=== PATIENT | female | born 2000 | race Caucasian/White ===

== ENCOUNTER 2019-07-18 11:08 | Emergency (ER) | payer MEDICAID ==
[~2019-07-18] VITALS: Ht 162.6 cm; Wt 83.7 kg
[~2019-07-18 11:08] MED LIST: ALBU18HF2 IH; DICY10CA59 PO; ETON68IM3 SQ; IBUP-1985 PO
[2019-07-18] MEDS ORDERED: ONDA8TAB6 PO (11:45)
[2019-07-18] MEDS ORDERED: DIPH25CA54 PO (11:45)
[2019-07-18] MEDS ORDERED: diphenhydrAMINE 25mg capsule PO ONE (11:45)
[2019-07-18] MEDS ORDERED: ondansetron 4mg rapidly disintigrating tab PO ONE (11:45)
[2019-07-18 12:16] VITALS: BP 116/83
[2019-07-18 12:32] LABS: GLUCOSE, URINE NEGATIVE (Neg); KETONES,URINE NEGATIVE (Neg); LEUKOCYTE ESTERASE ,URINE NEGATIVE (Neg); NITRITES, URINE NEGATIVE (Neg); OCCULT BLOOD,URINE LARGE (Neg); PROTEIN,URINE 100 mg/dl (Neg)
[2019-07-18 12:33] LABS: URINE HCG NEGATIVE (NEG)
[2019-07-18 12:48] LABS: COLOR,URINE DARK YELLOW (Yellow); UA COLLECTION TYPE CLN CATCH MIDSTREAM
[2019-07-18 12:49] LABS: BACTERIA,URINE FEW /HPF (Neg); CLARITY,URINE SLIGHTLY CLOUDY (Clear); MUCUS STRANDS FEW /LPF (Neg); RBC,URINE 50-100 /HPF (0-2); SQUAMOUS EPITHELIAL CELL,UR FEW /LPF (FEW)
== END 2019-07-18 12:18 | disposition home or self-care (01) ==
LOC: ER 11:09
DX: R21 Rash and other nonspecific skin eruption (principal); L29.9 Pruritus, unspecified; R10.30 Lower abdominal pain, unspecified; R11.0 Nausea; J45.909 Unspecified asthma, uncomplicated; F31.9 Bipolar disorder, unspecified; Z98.86 Personal history of breast implant removal; Z98.890 Other specified postprocedural states; Z88.0 Allergy status to penicillin; Z79.899 Other long term (current) drug therapy
CPT/HCPCS: 81001; 81025; 87088; 99283; Q0163

== ENCOUNTER 2019-08-09 15:20 | Emergency (ER) | payer MEDICAID ==
[~2019-08-09] VITALS: Ht 162.6 cm; Wt 80.4 kg
[~2019-08-09 15:20] MED LIST changes: +DIPH25CA54 PO; +ONDA8TAB6 PO
[2019-08-09 15:59] LABS: BASOPHILS # (AUTO) 0.1 X10'3 (0-0.2); BASOPHILS % (AUTO) 1.1 % (0-1); EOSINOPHILS # (AUTO) 1.9 X10'3 (0-0.9); EOSINOPHILS % (AUTO) 16.1 % (0-6); HEMATOCRIT 42.5 % (35.0-45.0); HEMOGLOBIN 14.5 g/dl (12.0-16.0); LYMPHOCYTES # (AUTO) 2.6 X10'3 (1.1-4.8); LYMPHOCYTES % (AUTO) 22.1 % (21-51); MEAN CORPUSCULAR HEMOGLOBIN 31.3 PG (27.0-31.0); MEAN CORPUSCULAR HGB CONC 34.1 g/dL (33.0-36.5); MEAN CORPUSCULAR VOLUME 91.9 FL (78-98); MEAN PLATELET VOLUME 8.3 FL (7.4-10.4); MONOCYTES # (AUTO) 0.7 X10'3 (0-0.9); MONOCYTES % (AUTO) 5.8 % (2-12); NEUTROPHILS # (AUTO) 6.5 X10'3 (1.8-7.7); NEUTROPHILS % (AUTO) 54.9 % (42-75); PLATELET COUNT 305 X10'3 (140-440); RED BLOOD COUNT 4.62 X10'6 (4.20-5.60); RED CELL DISTRIBUTION WIDTH 12.9 % (11.5-14.5); WHITE BLOOD COUNT 11.8 X10'3 (4.5-11.0)
[2019-08-09 16:13] LABS: ALANINE AMINOTRANSFERASE 28 U/L (12-78); ALBUMIN 3.1 G/DL (3.4-5.0); ALKALINE PHOSPHATASE 65 IU/L (20-180); ANION GAP 9 (8-16); ASPARTATE AMINO TRANSFERASE 16 U/L (10-37); BILIRUBIN,TOTAL 0.1 MG/DL (0.1-1.0); BLOOD UREA NITROGEN 8 MG/DL (7-18); BUN/CREATININE RATIO 10.4 (6.6-38.0); CALCIUM 8.4 MG/DL (8.5-10.1); CHLORIDE 109 MMOL/L (99-107); CREATININE 0.77 MG/DL (0.40-0.90); GLUCOSE 109 MG/DL (70-104); LIPASE 141 U/L (73-393); POTASSIUM 3.7 MMOL/L (3.5-5.1); SODIUM 143 MMOL/L (135-145); TOTAL CARBON DIOXIDE 24.8 MMOL/L (24-32); TOTAL PROTEIN 6.1 G/DL (6.4-8.2); eGFR > 90 ML/MIN
[2019-08-09 19:10] LABS: CLARITY,URINE CLEAR (Clear); COLOR,URINE YELLOW (Yellow); GLUCOSE, URINE NEGATIVE (Neg); KETONES,URINE NEGATIVE (Neg); LEUKOCYTE ESTERASE ,URINE NEGATIVE (Neg); NITRITES, URINE NEGATIVE (Neg); OCCULT BLOOD,URINE MODERATE (Neg); PROTEIN,URINE 30 mg/dl (Neg); UROBILINOGEN,URINE 0.2 E.U/dL (0.2-1.0)
[2019-08-09] MEDS ORDERED: PROC25SU31 RC (19:10)
[2019-08-09] MEDS ORDERED: PANT-47 PO (19:10)
[2019-08-09] MEDS ORDERED: pantoprazole 40 MG vial IV ONE (19:10)
[2019-08-09] MEDS ORDERED: normal saline 1000ML IV soln IVB ONE ×2 (19:10)
[2019-08-09] MEDS ORDERED: proCHLORperazine 10 MG/2 ml inj IV ONE (19:10)
[2019-08-09 19:15] LABS: URINE HCG NEGATIVE (NEG)
[2019-08-09 19:21] LABS: UA COLLECTION TYPE CLN CATCH MIDSTREAM
[2019-08-09 19:23] LABS: RBC,URINE 20-50 /HPF (0-2); WBC,URINE 0-4 /HPF (0-4)
[2019-08-09 19:24] LABS: BACTERIA,URINE NONE SEEN /HPF (Neg); MUCUS STRANDS MODERATE /LPF (Neg); SQUAMOUS EPITHELIAL CELL,UR FEW /LPF (FEW)
[2019-08-09 19:25] LABS: HYALINE CASTS 0-3 /LPF (NEGATIVE)
[2019-08-09] MEDS ORDERED: LIDOcaine Viscous 15ml cup TP ONE (19:30)
[2019-08-09] MEDS ORDERED: mag hydrox/Alum hydrox/simeth 30ml oral suspension PO ONE (19:30)
[2019-08-09 20:03] VITALS: BP 110/77
== END 2019-08-09 20:02 | disposition home or self-care (01) ==
LOC: ER 15:21
DX: K29.00 Acute gastritis without bleeding (principal); R10.13 Epigastric pain; R10.12 Left upper quadrant pain; R11.2 Nausea with vomiting, unspecified; J45.909 Unspecified asthma, uncomplicated; F12.90 Cannabis use, unspecified, uncomplicated; F17.200 Nicotine dependence, unspecified, uncomplicated; Z90.89 Acquired absence of other organs; Z88.0 Allergy status to penicillin; Z79.899 Other long term (current) drug therapy
CPT/HCPCS: 36415; 80053; 81001; 81025; 83690; 85025; 96374; 96375; 99284; C9113; J0780; J7030

== ENCOUNTER 2019-12-01 04:25 | Emergency (ER) | payer MEDICAID ==
[~2019-12-01] VITALS: Ht 162.6 cm; Wt 83.8 kg
[~2019-12-01 04:25] MED LIST changes: +PANT-47 PO
[2019-12-01 04:53] LABS: CLARITY,URINE SLIGHTLY CLOUDY (Clear); COLOR,URINE YELLOW (Yellow); GLUCOSE, URINE NEGATIVE (Neg); KETONES,URINE NEGATIVE (Neg); LEUKOCYTE ESTERASE ,URINE NEGATIVE (Neg); NITRITES, URINE NEGATIVE (Neg); OCCULT BLOOD,URINE LARGE (Neg); PROTEIN,URINE 100 mg/dl (Neg); URINE HCG NEGATIVE (NEG)
[2019-12-01 04:57] LABS: BASOPHILS # (AUTO) 0.1 X10'3 (0-0.2); BASOPHILS % (AUTO) 0.7 % (0-1); EOSINOPHILS # (AUTO) 1.9 X10'3 (0-0.9); EOSINOPHILS % (AUTO) 17.7 % (0-6); HEMATOCRIT 40.6 % (35.0-45.0); HEMOGLOBIN 13.8 g/dl (12.0-16.0); LYMPHOCYTES # (AUTO) 3.3 X10'3 (1.1-4.8); LYMPHOCYTES % (AUTO) 30.9 % (21-51); MEAN CORPUSCULAR HEMOGLOBIN 32.1 PG (27.0-31.0); MEAN CORPUSCULAR VOLUME 94.4 FL (78-98); MEAN PLATELET VOLUME 8.5 FL (7.4-10.4); MONOCYTES # (AUTO) 0.8 X10'3 (0-0.9); MONOCYTES % (AUTO) 7.4 % (2-12); NEUTROPHILS # (AUTO) 4.6 X10'3 (1.8-7.7); NEUTROPHILS % (AUTO) 43.3 % (42-75); PLATELET COUNT 293 X10'3 (140-440); RED CELL DISTRIBUTION WIDTH 13.2 % (11.5-14.5); WHITE BLOOD COUNT 10.6 X10'3 (4.5-11.0)
[2019-12-01 04:58] LABS: UA COLLECTION TYPE CLN CATCH MIDSTREAM
[2019-12-01 04:59] LABS: BACTERIA,URINE FEW /HPF (Neg); RBC,URINE 50-100 /HPF (0-2); SQUAMOUS EPITHELIAL CELL,UR MODERATE /LPF (FEW); WBC,URINE 0-4 /HPF (0-4)
[2019-12-01 05:12] LABS: ALANINE AMINOTRANSFERASE 30 U/L (12-78); ALBUMIN 3.3 G/DL (3.4-5.0); ALKALINE PHOSPHATASE 69 IU/L (20-180); ANION GAP 10 (8-16); ASPARTATE AMINO TRANSFERASE 20 U/L (10-37); BILIRUBIN,TOTAL 0.3 MG/DL (0.1-1.0); BLOOD UREA NITROGEN 10 MG/DL (7-18); BUN/CREATININE RATIO 12.8 (6.6-38.0); CALCIUM 8.7 MG/DL (8.5-10.1); CHLORIDE 106 MMOL/L (99-107); CREATININE 0.78 MG/DL (0.40-0.90); GLUCOSE 96 MG/DL (70-104); LIPASE 128 U/L (73-393); SODIUM 141 MMOL/L (135-145); TOTAL CARBON DIOXIDE 25.2 MMOL/L (24-32); TOTAL PROTEIN 6.5 G/DL (6.4-8.2); eGFR > 90 ML/MIN
[2019-12-01 05:39] VITALS: BP 117/71
== END 2019-12-01 05:41 | disposition home or self-care (01) ==
LOC: ER 04:26
DX: R10.11 Right upper quadrant pain (principal); J45.909 Unspecified asthma, uncomplicated; F12.90 Cannabis use, unspecified, uncomplicated; F31.9 Bipolar disorder, unspecified; N94.6 Dysmenorrhea, unspecified; N92.5 Other specified irregular menstruation; Z88.0 Allergy status to penicillin; Z87.440 Personal history of urinary (tract) infections; Z86.69 Personal history of other diseases of the nervous system and sense organs; Z90.89 Acquired absence of other organs; Z79.899 Other long term (current) drug therapy
CPT/HCPCS: 36415; 80053; 81001; 81025; 83690; 85025; 99283

== ENCOUNTER 2019-12-08 19:24 | Emergency (ER) | payer MEDICAID ==
[~2019-12-08] VITALS: Ht 162.6 cm; Wt 84.8 kg
[2019-12-08 19:27] VITALS: BP 117/59
[2019-12-08] MEDS ORDERED: NAPR-996 PO (19:49)
[2019-12-08] MEDS ORDERED: ibuprofen tablet 400 MG TABLET PO ONE (19:50)
[2019-12-08] MEDS ORDERED: HYDROcodone/acetaminophen 5mg/325mg tablet PO ONE (19:50)
== END 2019-12-08 20:08 | disposition home or self-care (01) ==
LOC: ER 19:25
DX: K08.89 Other specified disorders of teeth and supporting structures (principal); F31.9 Bipolar disorder, unspecified; F12.90 Cannabis use, unspecified, uncomplicated; Z86.69 Personal history of other diseases of the nervous system and sense organs; Z90.89 Acquired absence of other organs; Z88.0 Allergy status to penicillin; Z79.899 Other long term (current) drug therapy
CPT/HCPCS: 99283

== ENCOUNTER 2020-01-03 06:38 | Emergency (ER) | payer MEDICAID ==
[~2020-01-03] VITALS: Ht 162.6 cm; Wt 77.3 kg
[~2020-01-03 06:38] MED LIST changes: +NAPR-996 PO
[2020-01-03 06:42] VITALS: BP 130/81
== END 2020-01-03 07:52 | disposition home or self-care (01) ==
LOC: ER 06:39
DX: J45.909 Unspecified asthma, uncomplicated (principal); Z11.59 Encounter for screening for other viral diseases; F31.9 Bipolar disorder, unspecified; F17.200 Nicotine dependence, unspecified, uncomplicated; F12.90 Cannabis use, unspecified, uncomplicated; M54.2 Cervicalgia; Z86.69 Personal history of other diseases of the nervous system and sense organs; Z88.0 Allergy status to penicillin; Z79.899 Other long term (current) drug therapy
CPT/HCPCS: 36415; 71045; 99284; U0003

== ENCOUNTER 2020-09-18 20:47 | Emergency (ER) | payer MEDICAID ==
[~2020-09-18] VITALS: Ht 160 cm; Wt 84.2 kg
[2020-09-18 21:33] LABS: BASOPHILS # (AUTO) 0.1 X10'3 (0-0.2); BASOPHILS % (AUTO) 1.2 % (0-1); EOSINOPHILS % (AUTO) 21.8 % (0-6); HEMATOCRIT 40.5 % (35.0-45.0); HEMOGLOBIN 13.9 g/dl (12.0-16.0); LYMPHOCYTES # (AUTO) 2.3 X10'3 (1.1-4.8); LYMPHOCYTES % (AUTO) 25.5 % (21-51); MEAN CORPUSCULAR HEMOGLOBIN 31.7 PG (27.0-31.0); MEAN CORPUSCULAR HGB CONC 34.3 g/dL (33.0-36.5); MEAN CORPUSCULAR VOLUME 92.5 FL (78-98); MEAN PLATELET VOLUME 8.8 FL (7.4-10.4); MONOCYTES # (AUTO) 0.5 X10'3 (0-0.9); MONOCYTES % (AUTO) 5.2 % (2-12); NEUTROPHILS # (AUTO) 4.2 X10'3 (1.8-7.7); NEUTROPHILS % (AUTO) 46.3 % (42-75); PLATELET COUNT 317 X10'3 (140-440); RED BLOOD COUNT 4.38 X10'6 (4.20-5.60); RED CELL DISTRIBUTION WIDTH 12.8 % (11.5-14.5)
[2020-09-18 21:43] LABS: ALANINE AMINOTRANSFERASE 24 U/L (12-78); ALBUMIN 3.3 G/DL (3.4-5.0); ALKALINE PHOSPHATASE 65 IU/L (46-116); ANION GAP 12 (8-16); ASPARTATE AMINO TRANSFERASE 17 U/L (10-37); BILIRUBIN,TOTAL 0.1 MG/DL (0.1-1.0); BLOOD UREA NITROGEN 12 MG/DL (7-18); CALCIUM 9.1 MG/DL (8.5-10.1); CHLORIDE 104 MMOL/L (99-107); CREATININE 0.75 MG/DL (0.40-0.90); GLUCOSE 142 MG/DL (70-104); POTASSIUM 3.7 MMOL/L (3.5-5.1); SODIUM 142 MMOL/L (135-145); TOTAL CARBON DIOXIDE 26.2 MMOL/L (24-32); TOTAL PROTEIN 6.7 G/DL (6.4-8.2); eGFR > 90 ML/MIN
[2020-09-18 22:37] LABS: PLATELET ESTIMATE NORMAL; TOTAL CELLS COUNTED 100
[2020-09-18 23:23] LABS: URINE HCG NEGATIVE (NEG)
[2020-09-18] MEDS ORDERED: metroNIDAZOLE 500mg tablet PO ONE (23:25)
[2020-09-18] MEDS ORDERED: CEFTRIAXONE 500 MG VIAL IM ONE (23:25)
[2020-09-18] MEDS ORDERED: DOXY100C43 PO (23:27)
[2020-09-18] MEDS ORDERED: FLUC150T66 PO (23:27)
[2020-09-18] MEDS ORDERED: METR-159 PO (23:27)
[2020-09-18] MEDS ORDERED: fluconazole 150mg tablet PO ONE (23:30)
[2020-09-18 23:38] LABS: CLARITY,URINE CLOUDY (Clear); COLOR,URINE YELLOW (Yellow); GLUCOSE, URINE NEGATIVE (Neg); KETONES,URINE NEGATIVE (Neg); LEUKOCYTE ESTERASE ,URINE SMALL (Neg); NITRITES, URINE NEGATIVE (Neg); OCCULT BLOOD,URINE LARGE (Neg); PH,URINE 7.5 (4.8-8.0); PROTEIN,URINE 100 mg/dl (Neg)
[2020-09-18 23:49] LABS: UA COLLECTION TYPE CLN CATCH MIDSTREAM
[2020-09-18 23:50] LABS: BACTERIA,URINE 4+ /HPF (Neg); WBC,URINE 50-100 /HPF (0-4)
[2020-09-18 23:51] LABS: SQUAMOUS EPITHELIAL CELL,UR MANY /LPF (FEW); WBC CLUMPS,URINE FEW /HPF (NEGATIVE)
[2020-09-18] MEDS ORDERED: CefTRIAXone 1000mg IM Kit (w/lidocaine diluent) IM ONE (23:55)
[2020-09-18 23:56] VITALS: BP 120/68
== END 2020-09-18 23:50 | disposition home or self-care (01) ==
LOC: ER 20:47
DX: N72 Inflammatory disease of cervix uteri (principal); R42 Dizziness and giddiness; G40.909 Epilepsy, unspecified, not intractable, without status epilepticus; J45.909 Unspecified asthma, uncomplicated; F12.90 Cannabis use, unspecified, uncomplicated; Z87.440 Personal history of urinary (tract) infections; Z90.49 Acquired absence of other specified parts of digestive tract; Z88.0 Allergy status to penicillin; Z91.030 Bee allergy status; Z79.2 Long term (current) use of antibiotics; Z79.899 Other long term (current) drug therapy
CPT/HCPCS: 36415; 80053; 81001; 81025; 85007; 85025; 96372; 99283; J0696; J3490

== ENCOUNTER 2020-12-03 19:31 | Emergency (ER) | payer MEDICAID ==
[~2020-12-03] VITALS: Ht 160 cm; Wt 81.8 kg
[2020-12-03 20:10] LABS: BASOPHILS # (AUTO) 0.1 X10'3 (0-0.2); EOSINOPHILS # (AUTO) 2.6 X10'3 (0-0.9); EOSINOPHILS % (AUTO) 22.4 % (0-6); HEMATOCRIT 41.8 % (35.0-45.0); HEMOGLOBIN 14.3 g/dl (12.0-16.0); LYMPHOCYTES # (AUTO) 3.9 X10'3 (1.1-4.8); LYMPHOCYTES % (AUTO) 34.1 % (21-51); MEAN CORPUSCULAR HEMOGLOBIN 32.2 PG (27.0-31.0); MEAN CORPUSCULAR HGB CONC 34.2 g/dL (33.0-36.5); MEAN CORPUSCULAR VOLUME 94.3 FL (78-98); MONOCYTES # (AUTO) 0.7 X10'3 (0-0.9); MONOCYTES % (AUTO) 6.4 % (2-12); NEUTROPHILS # (AUTO) 4.1 X10'3 (1.8-7.7); NEUTROPHILS % (AUTO) 36.1 % (42-75); PLATELET COUNT 287 X10'3 (140-440); RED BLOOD COUNT 4.44 X10'6 (4.20-5.60); RED CELL DISTRIBUTION WIDTH 12.7 % (11.5-14.5); WHITE BLOOD COUNT 11.5 X10'3 (4.5-11.0)
[2020-12-03 20:16] LABS: GLUCOSE 96 MG/DL (70-104)
[2020-12-03 20:17] LABS: ALANINE AMINOTRANSFERASE 35 U/L (12-78); ALBUMIN 3.4 G/DL (3.4-5.0); ALKALINE PHOSPHATASE 65 IU/L (46-116); ANION GAP 7 (8-16); ASPARTATE AMINO TRANSFERASE 30 U/L (10-37); BILIRUBIN,TOTAL 0.2 MG/DL (0.1-1.0); BLOOD UREA NITROGEN 14 MG/DL (7-18); BUN/CREATININE RATIO 15.9 (6.6-38.0); CALCIUM 8.9 MG/DL (8.5-10.1); CHLORIDE 105 MMOL/L (99-107); CREATININE 0.88 MG/DL (0.40-0.90); POTASSIUM 3.6 MMOL/L (3.5-5.1); SODIUM 139 MMOL/L (135-145); TOTAL CARBON DIOXIDE 27.3 MMOL/L (24-32); TOTAL PROTEIN 6.8 G/DL (6.4-8.2); eGFR 81 ML/MIN
[2020-12-03 21:24] LABS: PLATELET ESTIMATE NORMAL; TOTAL CELLS COUNTED 100
[2020-12-03 21:25] LABS: LARGE PLATELETS FEW
[2020-12-03 22:35] VITALS: BP 112/86
== END 2020-12-03 22:36 | disposition home or self-care (01) ==
LOC: ER 19:32
DX: R10.13 Epigastric pain (principal); D72.10 Eosinophilia, unspecified; R10.12 Left upper quadrant pain; R07.89 Other chest pain; F17.200 Nicotine dependence, unspecified, uncomplicated; F12.90 Cannabis use, unspecified, uncomplicated; Z72.89 Other problems related to lifestyle; Z88.0 Allergy status to penicillin; Z79.899 Other long term (current) drug therapy
CPT/HCPCS: 36415; 71045; 80053; 83880; 84484; 85007; 85025; 93005; 99285

== ENCOUNTER 2020-12-16 21:00 | Emergency (ER) | payer MEDICAID ==
[~2020-12-16] VITALS: Ht 162.6 cm; Wt 86.4 kg
[~2020-12-16 21:00] MED LIST changes: +LIDOcaine 1% W/epiNEPHrine 1:100,000 20ml vial ONE
[2020-12-16] MEDS ORDERED: clindamycin 600mg/D5W 50ml 50 ML IV ONE (23:35)
[2020-12-16] MEDS ORDERED: LIDOcaine/PRILOcaine 5gm cream TP ONE (23:35)
[2020-12-16] MEDS ORDERED: normal saline 1000ml 1,000 ML IV ONE (23:35)
[2020-12-16] MEDS ORDERED: ketorolac trometh. 30mg/ml inj. IV ONE (23:35)
[2020-12-17 00:47] VITALS: BP 121/83
[2020-12-17] MEDS ORDERED: CLIN150C2 PO (00:54)
--- NOTE | 2020-12-17 00:55 | NUR ---
Covering for break, Matthew KEATING. Md MICHELLE at bedside for procedure.
== END 2020-12-17 01:03 | disposition home or self-care (01) ==
LOC: ER 21:01
DX: L03.211 Cellulitis of face (principal); R51.9 Headache, unspecified; F12.90 Cannabis use, unspecified, uncomplicated; Z72.89 Other problems related to lifestyle; Z90.89 Acquired absence of other organs; Z88.0 Allergy status to penicillin; Z79.2 Long term (current) use of antibiotics; Z79.899 Other long term (current) drug therapy
CPT/HCPCS: 10060; 96365; 96366; 96375; 99284; J1885; J7030; J3490

== ENCOUNTER 2021-01-02 02:37 | Emergency (ER) | payer MEDICAID ==
[~2021-01-02] VITALS: Ht 162.6 cm; Wt 86.0 kg
[~2021-01-02 02:37] MED LIST changes: -LIDOcaine 1% W/epiNEPHrine 1:100,000 20ml vial ONE
[2021-01-02 02:46] VITALS: BP 134/81
[2021-01-02 03:34] LABS: URINE HCG NEGATIVE (NEG)
[2021-01-02 03:35] LABS: CLARITY,URINE CLOUDY (Clear); COLOR,URINE YELLOW (Yellow); GLUCOSE, URINE NEGATIVE (Neg); KETONES,URINE NEGATIVE (Neg); LEUKOCYTE ESTERASE ,URINE TRACE (Neg); NITRITES, URINE NEGATIVE (Neg); OCCULT BLOOD,URINE LARGE (Neg); PROTEIN,URINE >=300 mg/dl (Neg); UROBILINOGEN,URINE 0.2 E.U/dL (0.2-1.0)
[2021-01-02 03:42] LABS: UA COLLECTION TYPE CLN CATCH MIDSTREAM
[2021-01-02 03:45] LABS: BACTERIA,URINE 1+ /HPF (Neg); MUCUS STRANDS MANY /LPF (Neg); RBC,URINE 50-100 /HPF (0-2); SQUAMOUS EPITHELIAL CELL,UR MANY /LPF (FEW); WBC,URINE 0-4 /HPF (0-4)
== END 2021-01-02 07:25 | disposition left against medical advice (07) ==
LOC: ER 02:37
DX: R07.89 Other chest pain (principal); R10.9 Unspecified abdominal pain; Z53.21 Procedure and treatment not carried out due to patient leaving prior to being seen by health care provider
CPT/HCPCS: 81001; 81025

== ENCOUNTER 2021-01-31 06:01 | Inpatient (IN) | payer MEDICAID ==
[~2021-01-31] VITALS: Ht 162.6 cm; Wt 86.3 kg
[2021-01-31] MEDS ORDERED: ondansetron/PF 4mg/2ml inj IV ONE (06:40)
[2021-01-31] MEDS ORDERED: ondansetron 4mg rapidly disintigrating tab PO ONE (06:40)
[2021-01-31] MEDS ORDERED: normal saline 1000ML IV soln IVB ONE ×2 (06:40→11:05)
[2021-01-31 07:10] LABS: BASOPHILS # (AUTO) 0.1 X10'3 (0-0.2); BASOPHILS % (AUTO) 1.1 % (0-1); EOSINOPHILS # (AUTO) 1.5 X10'3 (0-0.9); EOSINOPHILS % (AUTO) 15.4 % (0-6); HEMATOCRIT 41.3 % (35.0-45.0); LYMPHOCYTES # (AUTO) 1.6 X10'3 (1.1-4.8); LYMPHOCYTES % (AUTO) 16.8 % (21-51); MEAN CORPUSCULAR HEMOGLOBIN 31.7 PG (27.0-31.0); MEAN CORPUSCULAR VOLUME 93.2 FL (78-98); MEAN PLATELET VOLUME 8.9 FL (7.4-10.4); MONOCYTES % (AUTO) 10.2 % (2-12); NEUTROPHILS # (AUTO) 5.3 X10'3 (1.8-7.7); NEUTROPHILS % (AUTO) 56.5 % (42-75); PLATELET COUNT 316 X10'3 (140-440); RED BLOOD COUNT 4.43 X10'6 (4.20-5.60); WHITE BLOOD COUNT 9.5 X10'3 (4.5-11.0)
[2021-01-31 07:11] LABS: URINE HCG NEGATIVE (NEG)
[2021-01-31 07:15] LABS: CLARITY,URINE CLEAR (Clear); COLOR,URINE AMBER (Yellow); GLUCOSE, URINE NEGATIVE (Neg); KETONES,URINE NEGATIVE (Neg); LEUKOCYTE ESTERASE ,URINE NEGATIVE (Neg); NITRITES, URINE NEGATIVE (Neg); OCCULT BLOOD,URINE LARGE (Neg); PH,URINE 6.5 (4.8-8.0); PROTEIN,URINE >=300 mg/dl (Neg)
[2021-01-31 07:19] LABS: UA COLLECTION TYPE CLN CATCH MIDSTREAM
[2021-01-31 07:33] LABS: URINE AMPHETAMINE SCREEN NEGATIVE (Neg); URINE BARBITUATE SCREEN NEGATIVE (Neg); URINE BENZODIAZEPINES SCREEN NEGATIVE (Neg); URINE CANNABINOID SCREEN POSITIVE (Neg); URINE COCAINE SCREEN NEGATIVE (Neg); URINE METHADONE SCREEN NEGATIVE (Neg); URINE OPIATE SCREEN NEGATIVE (Neg); URINE PHENCYCLIDINE SCREEN NEGATIVE (Neg)
[2021-01-31 07:34] LABS: ALANINE AMINOTRANSFERASE 703 U/L (12-78); ALBUMIN 3.3 G/DL (3.4-5.0); ALBUMIN/GLOBULIN RATIO 0.9 (1.1-1.5); ALKALINE PHOSPHATASE 162 IU/L (46-116); ANION GAP 7 (8-16); ASPARTATE AMINO TRANSFERASE 370 U/L (10-37); BILIRUBIN,TOTAL 3.5 MG/DL (0.1-1.0); BLOOD UREA NITROGEN 11 MG/DL (7-18); BUN/CREATININE RATIO 13.4 (6.6-38.0); CALCIUM 8.4 MG/DL (8.5-10.1); CHLORIDE 107 MMOL/L (99-107); CREATININE 0.82 MG/DL (0.40-0.90); ETHANOL < 0.010 GM/DL (0.0-0.010); GLUCOSE 113 MG/DL (70-104); MAGNESIUM 1.8 MG/DL (1.5-2.4); SODIUM 140 MMOL/L (135-145); TOTAL CARBON DIOXIDE 25.9 MMOL/L (24-32); TOTAL PROTEIN 6.9 G/DL (6.4-8.2); eGFR 88 ML/MIN
[2021-01-31 07:35] LABS: SQUAMOUS EPITHELIAL CELL,UR MODERATE /LPF (FEW)
[2021-01-31 07:38] LABS: RBC,URINE TNTC /HPF (0-2)
[2021-01-31 07:41] LABS: BACTERIA,URINE FEW /HPF (Neg)
[2021-01-31 07:42] LABS: WBC,URINE 0-4 /HPF (0-4)
[2021-01-31 07:57] LABS: LIPASE 15619 U/L (73-393)
[2021-01-31] MEDS ORDERED: LORazepam 2 mg/ml vial IV ONE (11:05)
[2021-01-31] MEDS ORDERED: morphine 4 MG/ML inj SYRINge IV ONE (11:05)
[2021-01-31] MEDS ORDERED: diphenhydrAMINE 50 mg/ml inj ONE (12:12)
--- NOTE | 2021-01-31 12:14 | NUR ---
Approx 2 mins into Morphine administration pt complained off itchiness and rash to upper arm on side of IV. MD Aware, benadryl ordered, Morphine added to patient allergies. Pt denies SOB, tongue swelling, rash does not appear to be growing.
[2021-01-31] MEDS ORDERED: diphenhydrAMINE 50 mg/ml inj IV ONE (12:15)
[2021-01-31] MEDS ORDERED: HYDROmorphone 1 mg/ml syringe IV ONE (12:55)
[2021-01-31] MEDS ORDERED: magnesium 4gm in 100ml NS 100 ML IV PRN (13:50)
[2021-01-31] MEDS ORDERED: ipratropium/albuterol 3ml nebule NEB PRN (13:50)
[2021-01-31] MEDS ORDERED: potassium Cl 20 mEq SR tablet PO PRN (13:50)
[2021-01-31] MEDS ORDERED: magnesium 2GM in 50ml NS 50 ML IV PRN (13:50)
[2021-01-31] MEDS ORDERED: potassium Cl 40MEQ/1/2NS 520ml 520 ML IV PRN ×2 (13:50)
[2021-01-31] MEDS ORDERED: albuterol 2.5 MG/3 ML nebule NEB PRN (13:50)
[2021-01-31] MEDS ORDERED: ondansetron/PF 4mg/2ml inj IV PRN (13:50)
[2021-01-31] MEDS ORDERED: magnesium hydroxide 30ml (MOM) UD suspension PO PRN (13:50)
[2021-01-31] MEDS ORDERED: mag hydrox/Alum hydrox/simeth 30ml oral suspension PO PRN (13:50)
[2021-01-31] MEDS ORDERED: iohexol 300mg/ml 100ml inj. ONE (13:58)
[2021-01-31] MEDS ORDERED: ARIP15TA19 PO (14:24)
[2021-01-31] MEDS ORDERED: PANT-47 PO (14:24)
[2021-01-31] MEDS ORDERED: ONDA8TAB13 PO (14:24)
[2021-01-31] MEDS ORDERED: normal saline 1000ml 1,000 ML IV SCH (14:35)
[2021-01-31] MEDS: normal saline 1000ml 1,000 ML IV SCH ×3 (14:57→23:48)
[2021-01-31] MEDS ORDERED: heparin, porcine 5000 units/ml vial SQ SCH (16:00)
[2021-01-31] MEDS ORDERED: sevoflurane 250ml liquid IH ONE (17:52)
[2021-01-31] MEDS ORDERED: nicotine 21mg patch - 24 hr TD STA (18:59)
[2021-01-31] MEDS: K and/or MAG REPLACEMENT MC SCH (20:00)
[2021-01-31] MEDS: docusate sod 100mg capsule PO SCH (20:00)
[2021-02-01] VITALS (16 sets, daily range): BP systolic 110–143; BP diastolic 53–90
[2021-02-01] MEDS: HYDROmorphone inj. 0.5 MG/0.5 ML DISP.SYRIN IV PRN ×3 (02:28→15:27)
[2021-02-01 02:39] LABS: BASOPHILS # (AUTO) 0.1 X10'3 (0-0.2); BASOPHILS % (AUTO) 0.6 % (0-1); EOSINOPHILS # (AUTO) 0.9 X10'3 (0-0.9); EOSINOPHILS % (AUTO) 9.4 % (0-6); HEMATOCRIT 35.6 % (35.0-45.0); HEMOGLOBIN 12.3 g/dl (12.0-16.0); LYMPHOCYTES # (AUTO) 2.5 X10'3 (1.1-4.8); LYMPHOCYTES % (AUTO) 25.7 % (21-51); MEAN CORPUSCULAR HEMOGLOBIN 31.9 PG (27.0-31.0); MEAN CORPUSCULAR HGB CONC 34.7 g/dL (33.0-36.5); MEAN CORPUSCULAR VOLUME 91.9 FL (78-98); MEAN PLATELET VOLUME 8.4 FL (7.4-10.4); MONOCYTES # (AUTO) 0.7 X10'3 (0-0.9); MONOCYTES % (AUTO) 6.9 % (2-12); NEUTROPHILS # (AUTO) 5.6 X10'3 (1.8-7.7); NEUTROPHILS % (AUTO) 57.4 % (42-75); PLATELET COUNT 269 X10'3 (140-440); RED BLOOD COUNT 3.88 X10'6 (4.20-5.60); RED CELL DISTRIBUTION WIDTH 13.1 % (11.5-14.5); WHITE BLOOD COUNT 9.7 X10'3 (4.5-11.0)
[2021-02-01 02:54] LABS: ALANINE AMINOTRANSFERASE 416 U/L (12-78); ALBUMIN 2.6 G/DL (3.4-5.0); ALBUMIN/GLOBULIN RATIO 0.9 (1.1-1.5); ALKALINE PHOSPHATASE 142 IU/L (46-116); ANION GAP 8 (8-16); ASPARTATE AMINO TRANSFERASE 116 U/L (10-37); BILIRUBIN,TOTAL 0.9 MG/DL (0.1-1.0); BLOOD UREA NITROGEN 6 MG/DL (7-18); BUN/CREATININE RATIO 9.5 (6.6-38.0); CALCIUM 7.1 MG/DL (8.5-10.1); CHLORIDE 109 MMOL/L (99-107); CREATININE 0.63 MG/DL (0.40-0.90); GLUCOSE 91 MG/DL (70-104); MAGNESIUM 1.8 MG/DL (1.5-2.4); POTASSIUM 3.4 MMOL/L (3.5-5.1); SODIUM 141 MMOL/L (135-145); TOTAL CARBON DIOXIDE 24.5 MMOL/L (24-32); TOTAL PROTEIN 5.6 G/DL (6.4-8.2); eGFR > 90 ML/MIN
[2021-02-01 03:24] LABS: LIPASE 2752 U/L (73-393)
[2021-02-01] MEDS: normal saline 1000ml 1,000 ML IV SCH ×4 (04:48→20:28)
--- NOTE | 2021-02-01 07:48 | NUR ---
Patient in room ORTHO 4023. I have received report from ZURI Cain in the ED and had the opportunity to ask questions and assume patient care.
[2021-02-01] MEDS: K and/or MAG REPLACEMENT MC SCH ×2 (10:35→20:00)
[2021-02-01] MEDS: potassium Cl 20 mEq SR tablet PO PRN ×3 (10:37→22:46)
[2021-02-01] MEDS: docusate sod 100mg capsule PO SCH ×2 (10:37→20:26)
--- NOTE | 2021-02-01 11:21 | NUR ---
Page Sent PAGER ID: [phone] MESSAGE: Karina [id number] Regarding RM [id number] [place], B- GI lab stated ERCP cancelled d/t negative component w/mrcp. Please advise.
[2021-02-01] MEDS: ARIPIPRAZOLE 15 MG TABLET PO SCH (11:48)
[2021-02-01] MEDS: nicotine 21mg patch - 24 hr TD SCH (11:48)
[2021-02-01] MEDS ORDERED: INDOCYANINE GREEN 25 MG/10 ML VIAL IV STA (16:02)
[2021-02-01] MEDS ORDERED: ceFAZolin/D5W- 1GM premix 50 ML IV ONE (16:05)
[2021-02-01] MEDS ORDERED: ringers solution, lacted 1,000 ML IV STA (16:20)
--- NOTE | 2021-02-01 16:40 | NUR ---
Pt left floor to OR in stable condition.
--- NOTE | 2021-02-01 16:42 | NUR ---
Report called to ZURI Govea in recovery.
[2021-02-01] MEDS ORDERED: BUPIVAcaine 0.5% inj/PF 30 ML ONE (17:21)
[2021-02-01] MEDS ORDERED: LIDOcaine 1% 30ml preserv. free vial ONE (17:21)
[2021-02-01] MEDS ORDERED: labetalol 20mg/4ml (5mg/ml) syringe IV PRN (17:25)
[2021-02-01] MEDS ORDERED: ondansetron/PF 4mg/2ml inj IV PRN (17:25)
[2021-02-01] MEDS ORDERED: HYDROmorphone/PF 0.2 MG/ML SYRINGE IV PRN ×2 (17:25)
[2021-02-01] MEDS ORDERED: hydrALAZINE 20mg/ml inj. IV PRN (17:25)
[2021-02-01] MEDS ORDERED: ringers solution, lacted 1,000 ML IV SCH (17:25)
[2021-02-01] MEDS ORDERED: fentaNYL/PF 50MCG/1 ML 2ML syringe IV PRN ×2 (17:25)
[2021-02-01] MEDS ORDERED: acetaminophen 1,000mg/100ml IV 100 ML IV PRN (17:25)
[2021-02-01] MEDS ORDERED: proCHLORperazine 10 MG/2 ml inj IV PRN (17:25)
[2021-02-01] MEDS ORDERED: midazolam 1 mg/ML 2ml injection ONE (17:33)
[2021-02-01] MEDS ORDERED: fentaNYL /PF 50mcg/ml 5ml ampule ONE (17:33)
[2021-02-01] MEDS ORDERED: famotidine/PF 10 mg/ml inj IV ONE (17:44)
[2021-02-01] MEDS ORDERED: ondansetron/PF 4mg/2ml inj ONE (17:47)
[2021-02-01] MEDS ORDERED: ceFAZolin 1000mg inj ONE ×2 (17:47)
[2021-02-01] MEDS ORDERED: LIDOcaine 2% (20mg/ml) 5ml vial ONE (17:47)
[2021-02-01] MEDS ORDERED: propofol inj 20 ML IV ONE (17:47)
[2021-02-01] MEDS ORDERED: dexamethasone sod phosphate 4mg/ml inj. ONE (17:47)
[2021-02-01] MEDS ORDERED: rocuronium 10mg/ml inj IV ONE (17:47)
--- NOTE | 2021-02-01 18:22 | NUR ---
Problems reprioritized. Patient report given ZURI Chi questions answered & plan of care reviewed with .
[2021-02-01] MEDS ORDERED: neostigmine methylsulfate 1 MG/ML 10ml vial ONE (18:26)
[2021-02-01] MEDS ORDERED: glycopyrrolate 0.2mg/ml inj ONE (18:26)
--- NOTE | 2021-02-01 18:28 | NUR ---
Patient in room ORTHO 4023. I have received report from ZURI Collins and had the opportunity to ask questions and assume patient care.
--- NOTE | 2021-02-01 18:43 | NUR ---
Received from OR via , accompanied by Anesthesiologist DR CAMPUZANO and report given by Anesthesiolgist. AWAKENS TO VOICE. VITALS STABLE. DRESSINGS DI. VERONICA PAIN. ABD SOFT.
[2021-02-01] MEDS ORDERED: HYDROcodone/acetaminophen 5mg/325mg tablet PO PRN (18:55)
[2021-02-01] MEDS ORDERED: HYDROcodone/acetaminophen 10/325mg tab PO PRN (18:55)
--- NOTE | 2021-02-01 19:16 | NUR ---
Report given to me by James KEATING the recovery room nurse and I will give report to Hazel KEATING when she is available.
--- NOTE | 2021-02-01 19:23 | NUR ---
Report called to receiving nurse. Transferred via BED Belongings . Special Issues communicated to receiving nurse. AWAKE AND ORIENTED. VITALS STABLE. DRESSINGS DI. STATES PAIN IMPROVING. TO ORTHO RM 4025H AT THIS TIME.
[2021-02-01] MEDS: heparin, porcine 5000 units/ml vial SQ SCH (20:26)
[2021-02-02 02:00] VITALS: BP 112/63
[2021-02-02] MEDS: normal saline 1000ml 1,000 ML IV SCH ×2 (02:00→08:03)
[2021-02-02 03:15] VITALS: BP 125/58
--- NOTE | 2021-02-02 03:58 | NUR ---
Pt. walked a 1000feet.She tolerated well.
[2021-02-02 06:00] VITALS: BP 119/64
[2021-02-02 06:25] LABS: BASOPHILS % (AUTO) 0.2 % (0-1); EOSINOPHILS % (AUTO) 0.1 % (0-6); HEMATOCRIT 38.4 % (35.0-45.0); LYMPHOCYTES # (AUTO) 1.3 X10'3 (1.1-4.8); LYMPHOCYTES % (AUTO) 14.1 % (21-51); MEAN CORPUSCULAR HEMOGLOBIN 31.6 PG (27.0-31.0); MEAN CORPUSCULAR HGB CONC 33.9 g/dL (33.0-36.5); MEAN CORPUSCULAR VOLUME 93.5 FL (78-98); MEAN PLATELET VOLUME 9.2 FL (7.4-10.4); MONOCYTES # (AUTO) 0.6 X10'3 (0-0.9); MONOCYTES % (AUTO) 6.1 % (2-12); NEUTROPHILS # (AUTO) 7.2 X10'3 (1.8-7.7); NEUTROPHILS % (AUTO) 79.5 % (42-75); PLATELET COUNT 280 X10'3 (140-440); RED CELL DISTRIBUTION WIDTH 12.7 % (11.5-14.5); WHITE BLOOD COUNT 9.1 X10'3 (4.5-11.0)
--- NOTE | 2021-02-02 06:36 | NUR ---
Problems reprioritized. Patient report given, questions answered & plan of care reviewed with ZURI Jones.
[2021-02-02 06:51] LABS: ALANINE AMINOTRANSFERASE 285 U/L (12-78); ALBUMIN 2.8 G/DL (3.4-5.0); ALBUMIN/GLOBULIN RATIO 0.8 (1.1-1.5); ALKALINE PHOSPHATASE 132 IU/L (46-116); ANION GAP 9 (8-16); ASPARTATE AMINO TRANSFERASE 61 U/L (10-37); BILIRUBIN,TOTAL 0.4 MG/DL (0.1-1.0); BLOOD UREA NITROGEN 6 MG/DL (7-18); BUN/CREATININE RATIO 10.2 (6.6-38.0); CHLORIDE 109 MMOL/L (99-107); CREATININE 0.59 MG/DL (0.40-0.90); GLUCOSE 116 MG/DL (70-104); LIPASE 197 U/L (73-393); POTASSIUM 4.4 MMOL/L (3.5-5.1); SODIUM 141 MMOL/L (135-145); TOTAL PROTEIN 6.1 G/DL (6.4-8.2); eGFR > 90 ML/MIN
--- NOTE | 2021-02-02 07:06 | NUR ---
Patient in room ORTHO 4023. I have received report from Hazel Sparrow and had the opportunity to ask questions and assume patient care.
[2021-02-02] MEDS: K and/or MAG REPLACEMENT MC SCH (08:00)
[2021-02-02] MEDS: heparin, porcine 5000 units/ml vial SQ SCH (08:00)
[2021-02-02] MEDS: ARIPIPRAZOLE 15 MG TABLET PO SCH (08:00)
[2021-02-02] MEDS: docusate sod 100mg capsule PO SCH (08:04)
[2021-02-02] MEDS: nicotine 21mg patch - 24 hr TD SCH (08:05)
[2021-02-02] MEDS ORDERED: ketorolac tromethamine 15mg/ml inj. IV ONE (08:45)
== END 2021-02-02 09:40 | disposition home or self-care (01) | DRG 263 ==
LOC: ER 06:04 → ED HOLD 13:54 → ORTHO 4S 02-01 07:30
PROVIDERS: ADMIT Family Medicine; ATTEND Family Medicine
PROC: BW211ZZ Computerized Tomography (CT Scan) of Abdomen and Pelvis using Low Osmolar Contrast (ICD-10-PCS; 2021-01-31)
PROC: 8E0W8CZ Robotic Assisted Procedure of Trunk Region, Via Natural or Artificial Opening Endoscopic (ICD-10-PCS; 2021-02-01)
PROC: BF532Z0 Other Imaging of Gallbladder and Bile Ducts using Fluorescing Agent, Intraoperative (ICD-10-PCS; 2021-02-01)
PROC: 0FT44ZZ Resection of Gallbladder, Percutaneous Endoscopic Approach (ICD-10-PCS; principal; 2021-02-01 17:26)
DX: K85.10 Biliary acute pancreatitis without necrosis or infection (principal); E66.9 Obesity, unspecified; F12.90 Cannabis use, unspecified, uncomplicated; F17.210 Nicotine dependence, cigarettes, uncomplicated; R19.7 Diarrhea, unspecified; R74.01 Elevation of levels of liver transaminase levels; Z20.822 Contact with and (suspected) exposure to COVID-19; E80.6 Other disorders of bilirubin metabolism; F31.9 Bipolar disorder, unspecified; J45.909 Unspecified asthma, uncomplicated; Z80.3 Family history of malignant neoplasm of breast; Z81.8 Family history of other mental and behavioral disorders; Z82.49 Family history of ischemic heart disease and other diseases of the circulatory system; Z68.32 Body mass index [BMI] 32.0-32.9, adult; Z88.0 Allergy status to penicillin; Z88.5 Allergy status to narcotic agent; Z79.899 Other long term (current) drug therapy; Z71.6 Tobacco abuse counseling; Z71.51 Drug abuse counseling and surveillance of drug abuser
CPT/HCPCS: 36415; 74177; 74181; 76700; 80053; 80305; 80320; 81001; 81025; 82948; 83690; 83735; 85025; 87081; 87635; 94760; 96374; 96375; 99285; A4215; A4618; C9803; G0378; J0131; J0690; J1100; J1170; J1200; J1644; J1885; J2001; J2060; J2250; J2270; J2405; J2704; J2710; J3010; J3490; J7030; J7120; Q9967

== ENCOUNTER 2021-04-21 15:29 | Emergency (ER) | payer MEDICAID ==
[~2021-04-21] VITALS: Ht 162.6 cm; Wt 81.8 kg
[~2021-04-21 15:29] MED LIST changes: +ARIP15TA19 PO; -DICY10CA59 PO; -DIPH25CA54 PO; -ETON68IM3 SQ; -IBUP-1985 PO; -NAPR-996 PO; +ONDA8TAB13 PO; -ONDA8TAB6 PO
[2021-04-21 15:59] VITALS: BP 143/71
[2021-04-21 16:35] LABS: HEMOGLOBIN 14.5 g/dl (12.0-16.0)
[2021-04-21 16:37] LABS: BASOPHILS # (AUTO) 0.1 X10'3 (0-0.2); BASOPHILS % (AUTO) 0.8 % (0-1); EOSINOPHILS # (AUTO) 1.8 X10'3 (0-0.9); EOSINOPHILS % (AUTO) 17.8 % (0-6); HEMATOCRIT 42.1 % (35.0-45.0); LYMPHOCYTES # (AUTO) 2.8 X10'3 (1.1-4.8); LYMPHOCYTES % (AUTO) 28.4 % (21-51); MEAN CORPUSCULAR HEMOGLOBIN 31.2 PG (27.0-31.0); MEAN CORPUSCULAR HGB CONC 34.4 g/dL (33.0-36.5); MEAN CORPUSCULAR VOLUME 90.7 FL (78-98); MEAN PLATELET VOLUME 8.4 FL (7.4-10.4); MONOCYTES # (AUTO) 0.8 X10'3 (0-0.9); MONOCYTES % (AUTO) 7.7 % (2-12); NEUTROPHILS # (AUTO) 4.5 X10'3 (1.8-7.7); NEUTROPHILS % (AUTO) 45.3 % (42-75); PLATELET COUNT 340 X10'3 (140-440); RED BLOOD COUNT 4.64 X10'6 (4.20-5.60); RED CELL DISTRIBUTION WIDTH 13.3 % (11.5-14.5); WHITE BLOOD COUNT 9.9 X10'3 (4.5-11.0)
[2021-04-21 16:53] LABS: ALANINE AMINOTRANSFERASE 29 U/L (12-78); ALBUMIN 3.4 G/DL (3.4-5.0); ALBUMIN/GLOBULIN RATIO 0.9 (1.1-1.5); ALKALINE PHOSPHATASE 65 IU/L (46-116); ANION GAP 8 (8-16); ASPARTATE AMINO TRANSFERASE 19 U/L (10-37); BILIRUBIN,TOTAL 0.3 MG/DL (0.1-1.0); BLOOD UREA NITROGEN 13 MG/DL (7-18); BUN/CREATININE RATIO 18.3 (6.6-38.0); CALCIUM 8.7 MG/DL (8.5-10.1); CHLORIDE 105 MMOL/L (99-107); CREATININE 0.71 MG/DL (0.40-0.90); GLUCOSE 89 MG/DL (70-104); LIPASE 92 U/L (73-393); SODIUM 137 MMOL/L (135-145); TOTAL CARBON DIOXIDE 23.6 MMOL/L (24-32); TOTAL PROTEIN 7.2 G/DL (6.4-8.2); eGFR > 90 ML/MIN
== END 2021-04-21 21:51 | disposition left against medical advice (07) ==
LOC: ER 15:30
DX: R11.0 Nausea (principal); Z53.21 Procedure and treatment not carried out due to patient leaving prior to being seen by health care provider
CPT/HCPCS: 80053; 83690; 85025

== ENCOUNTER 2024-08-09 08:27 | Outpatient (CLI) | payer MEDICAID ==
[~2024-08-09 08:27] MED LIST changes: -ARIP15TA19 PO; +ARIP15TA68 PO; +ONDA-245 PO; -ONDA8TAB13 PO
== END 2024-08-09 23:59 | disposition home or self-care (01) ==
LOC: RAD 08:27
PROVIDERS: ATTEND Midwife
DX: N88.8 Other specified noninflammatory disorders of cervix uteri (principal); R10.2 Pelvic and perineal pain
CPT/HCPCS: 76830; 93976

== ENCOUNTER 2024-10-10 19:56 | Emergency (ER) | payer MEDICAID ==
[~2024-10-10] VITALS: Ht 162.6 cm; Wt 101.5 kg
[2024-10-10 20:03] VITALS: TEMP 98
[2024-10-10] MEDS ORDERED: LIDOcaine 1% 30ml preserv. free vial IJ ONE (20:15)
[2024-10-10 21:32] VITALS: BP 132/72; PULSE 89; RESP 16; O2SAT 96
== END 2024-10-10 21:33 | disposition home or self-care (01) ==
LOC: ER 19:56
DX: S61.215A Laceration without foreign body of left ring finger without damage to nail, initial encounter (principal); J45.909 Unspecified asthma, uncomplicated; F12.90 Cannabis use, unspecified, uncomplicated; Z88.0 Allergy status to penicillin; Z88.5 Allergy status to narcotic agent; Z90.89 Acquired absence of other organs; W26.0XXA Contact with knife, initial encounter; Y93.89 Activity, other specified; Y92.89 Other specified places as the place of occurrence of the external cause; Y99.8 Other external cause status
CPT/HCPCS: 12001; 99282; A6449

== ENCOUNTER 2025-01-27 22:06 | Emergency (ER) | payer MEDICAID ==
[~2025-01-27] VITALS: Ht 162.6 cm; Wt 109.6 kg
[2025-01-27 22:14] VITALS: BP 145/86; PULSE 102; RESP 16; TEMP 98; O2SAT 97
[2025-01-27 22:35] LABS: MEAN PLATELET VOLUME 8.3 FL (7.4-10.4); RED CELL DISTRIBUTION WIDTH 13.1 % (11.5-14.5)
[2025-01-27 22:54] LABS: CREATININE 0.75 MG/DL (0.40-0.90); PRO BRAIN NATRIURETIC PEPTIDE < 30 PG/ML (0-125); TOTAL CARBON DIOXIDE 23.2 MMOL/L (24-32); eCRCL 99 ML/MIN; eGFR > 90 ML/MIN
--- NOTE | 2025-01-27 23:01 | RADIOLOGY REPORT ---
CHEST RADIOGRAPH Indication: CP Technique: 1 view Comparison: CHEST,SINGLE VIEW on DOS: 12/03/20, CHEST,SINGLE VIEW on DOS: 01/03/20 FINDINGS: Lines and Tubes: None Lungs: No focal consolidation. Pleura: No effusion or pneumothorax. Cardiomediastinal contours: Unremarkable. Other: No acute osseous abnormality. IMPRESSION: 1. No acute cardiopulmonary abnormality.
--- NOTE | 2025-01-28 08:13 | ELECTROCARDIOGRAPH REPORT ---
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
[2025-01-29] MEDS ORDERED: CLIN-224 PO (02:10)
== END 2025-01-28 02:26 | disposition left against medical advice (07) ==
LOC: ER 22:06
DX: R07.9 Chest pain, unspecified (principal); R20.0 Anesthesia of skin; R06.02 Shortness of breath; Z88.0 Allergy status to penicillin; Z88.8 Allergy status to other drugs, medicaments and biological substances; Z53.21 Procedure and treatment not carried out due to patient leaving prior to being seen by health care provider
CPT/HCPCS: 36415; 71045; 80048; 83880; 84484; 85025; 93005

== ENCOUNTER 2025-01-28 22:22 | Emergency (ER) | payer MEDICAID ==
[~2025-01-28] VITALS: Ht 162.6 cm; Wt 101.6 kg
[2025-01-28 22:33] VITALS: BP 136/80; PULSE 98; RESP 20; TEMP 97.9; O2SAT 97
--- NOTE | 2025-01-28 22:45 | ELECTROCARDIOGRAPH REPORT ---
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 Isidro Calvillo Measurements Intervals [place] Rate: 100 P: 66 KS: 113 QRS: 48 QRSD: 75 T: 12 QT: 324 QTc: 418 Interpretive Statements Sinus tachycardia Borderline T wave abnormalities Electronically Signed On 03-09-2025 18:37:[address] Isidro Calvillo Please click the below link to view image of tracing.
[2025-01-29] MEDS ORDERED: CLIN-224 PO (02:10)
--- NOTE | 2025-01-29 02:10 | Physician Documentation ---
HPI ~ General Chief Complaint: See Chief Complaint Stated Complaint: CP,R ARM NUMBNESS,HEADACHE Time Seen by MD: 02:05 Primary Medical Doctor: [facility] Source: patient Mode of Arrival: POV Exam Limitations: no limitations History of Present Illness HPI Comment Chief Complaint: Multiple complaints Caveat: None Independent Historians: None History of Present Illness: Patient is a 24-year-old woman who has multiple complaints. She has had a right sided temporal headache and pain under the right eye, right lower dental pain and jaw swelling, sharp right chest pain for two weeks with tingling into the right upper extremity. Patient had her wisdom teeth removed two months ago in fractured the right bottom tooth number 32. Patient's chest pain has been constant for two weeks and is sometimes worse when she presses on it. Pain is described as sharp. Patient describes some swelling under the right mandible that she says comes and goes. No fever. Review of systems: All systems were reviewed and are negative except for what is indicated in the history of present illness. Past Medical History: None Past Surgical History: None Social History: No tobacco use, no alcohol use, no drug use Medications: Reviewed as documented Nursing Notes Allergies: Reviewed as documented in Nursing Notes Medication Reconciliation Allergies: Coded Allergies: Penicillins (Verified Allergy, Severe, 01/27/25) HIVES, THROAT SWELLING, SOB morphine (Verified Allergy, Intermediate, rash, 01/27/25) Scheduled Aripiprazole (Aripiprazole), 1 TAB PO DAILY, (Reported) Clindamycin HCL* (Clindamycin HCL*), 1 CAP PO Q6H Pantoprazole Sodium (PROTONIX tablet), 1 TAB PO DAILY, (Reported) Scheduled PRN Albuterol Sulfate (Ventolin Hfa), 2 INH IH Q4H PRN for cough, (Reported) Ondansetron 8mg ODT (Ondansetron Odt), 1 TAB PO Q8H PRN for nausea/vomiting, (Reported) Past Medical History Past Medical History: Seizures, Asthma, UTI, Bipolar Past Surgical History: tonsillectomy Patient History: FH: breast cancer MOTHER FH: myocardial infarction paternal grandfather FH: schizophrenia FATHER FH: seizures FATHER Alcohol Use: Occasionally Drug Use: marijuana Lives with: Family Lives In: Home Review of Systems All Other Systems at this time: Reviewed and Negative ROS Patient denies any other acute symptoms other than above. All other systems are negative Physical Exam Vital Signs: RN Vital Signs have been reviewed: Yes, Temperature: 97.9, Source: Temporal, Heart Rate: 98, Respiratory Rate: 20, BP: 136/80, Pulse Oximetry: 97, Weight: 101.600 Oxygen Flow Rate: 0 Pulse Oximetry Reflects: adequate oxygenation Physical Exam General Appearance: No distress HEENT: Normal OP, moist oral mucosa, PERRL, EOMI, tooth number 32 is fractured and half with a posterior have absent with the central filling. This area is tender. No peridental fluctuance. No submandibular swelling. No erythema. No submental swelling. Neck: supple, normal ROM, trachea midline Pulmonary: No respiratory distress, CTA, BS equal Cardiac: RRR, no murmur, rub or gallop, Chest: Outwardly normal-appearing, right chest wall is tender to palpation. Extremities: normal ROM, no swelling, non-tender Skin: intact, dry, warm, no rashes Neuro: AAOx3, speech is clear, no focal motor weakness Psych: normal affect, good eye contact, no apparent hallucination, normal speech Progress Results/Orders Results/Orders Completed Orders - CHRISTOPHER PENG MD Electrocardiogram (01/28/25 ) Vital Signs 01/28/25 22:33 Temp 97.9 Pulse 98 Resp 20 B/P (MAP) 136/80 Pulse Ox 97 O2 Flow Rate 0 Medical Decision Making Findings Differential diagnosis includes but is not limited to: Musculoskeletal pain, dental infection, tension headache, fractured tooth, acute coronary syndrome Emergency department course/medical decision-making: Patient has a multitude of symptoms that do not fit for any one particular diagnosis. Patient's chest pain is very focal in the right chest in his reproducible with palpation. Patient's pain isn't consistent with the acute coronary syndrome or pulmonary embolus. Patient's symptoms have been ongoing for at least two weeks. Patient does have a fractured tooth. Patient will be placed on clindamycin. There was no evidence of peridental abscess. Patient is reassured. She is instructed to take Motrin and Tylenol for pain. Patient is instructed to follow up with her dentist as soon as possible for repair of the tooth. Patient is stable for discharge. Departure Time of Disposition: 02:08 Disposition: 01 HOME / SELF CARE / HOMELESS Impression: Primary Impression: Musculoskeletal chest pain Additional Impression: Pain, dental Condition: Stable Discharge Instructions: Chest Wall Pain, [id number], Dental Pain, [id number] Additional Instructions: FOLLOW UP WITH YOUR DENTIST Prescriptions Clindamycin HCL* (Clindamycin HCL*) 300 Mg Capsule 1 CAP PO Q6H, #40 CAP Prov: CHRISTOPHER PENG MD 01/29/25 Education Educated: Patient Educated regarding: diagnosis, treatment, need for follow up Signature Scribe Signature: NO SCRIBE Attestation: NO SCRIBE CHRISTOPHER PENG MD Jan 29, 2025 02:10
== END 2025-01-29 02:18 | disposition home or self-care (01) ==
LOC: ER 22:22
DX: R07.89 Other chest pain (principal); K08.89 Other specified disorders of teeth and supporting structures; F31.9 Bipolar disorder, unspecified; F12.90 Cannabis use, unspecified, uncomplicated; J45.909 Unspecified asthma, uncomplicated; Z88.0 Allergy status to penicillin; Z88.5 Allergy status to narcotic agent; Z79.899 Other long term (current) drug therapy; Z72.89 Other problems related to lifestyle
CPT/HCPCS: 93005; 99283

== ENCOUNTER 2025-05-11 20:52 | Emergency (ER) | payer MEDICAID ==
[~2025-05-11] VITALS: Ht 162.6 cm; Wt 99.3 kg
[~2025-05-11 20:52] MED LIST changes: +CLIN-224 PO
--- NOTE | 2025-05-11 21:10 | ELECTROCARDIOGRAPH REPORT ---
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 ROWENA Antony Measurements Intervals [place] Rate: 108 P: 79 WI: 106 QRS: 43 QRSD: 73 T: -31 QT: 315 QTc: 422 Interpretive Statements Sinus tachycardia Borderline Q waves in inferior leads Borderline repolarization abnormality Electronically Signed On 05-12-2025 16:52:[address] ROWENA Antony Please click the below link to view image of tracing.
--- NOTE | 2025-05-11 21:30 | RADIOLOGY REPORT ---
EXAM: DI CHEST,SINGLE VIEW HISTORY: rib pain LEFT LAT TECHNIQUE: 1 view of the chest COMPARISON: DI CHEST,SINGLE VIEW on DOS: 01/27/25 FINDINGS/IMPRESSION: LUNGS: No pleural effusion, consolidation, or pneumothorax. MEDIASTINUM: Unremarkable. BONES: No acute osseous abnormality. OTHER: None.
--- NOTE | 2025-05-11 22:15 | Physician Documentation ---
History of Present Illness ~ Chief Complaint: Rib pain Stated Complaint: CHEST PAIN/CHEST COLD Time Seen by MD: 22:02 Primary Medical Doctor: [facility] Patient presents to the emergency room with left axillary pain that has been going on for this past week. She has had a cough this past week. She has tried intermittent ibuprofen and Tylenol for the pain. She states that has a small bump associated with her pain for which she has been looked at by her primary care. Investigations are pending. No fevers Tetanus within 5 Years?: No Allergies: Coded Allergies: Penicillins (Verified Allergy, Severe, 05/11/25) HIVES, THROAT SWELLING, SOB morphine (Verified Allergy, Intermediate, rash, 05/11/25) Active Prescriptions See Medication Reconciliation Form. Medication Reconciliation Scheduled Aripiprazole (Aripiprazole), 1 TAB PO DAILY, (Reported) Clindamycin HCL* (Clindamycin HCL*), 1 CAP PO Q6H Pantoprazole Sodium (PROTONIX tablet), 1 TAB PO DAILY, (Reported) Scheduled PRN Albuterol Sulfate (Ventolin Hfa), 2 INH IH Q4H PRN for cough, (Reported) Ondansetron 8mg ODT (Ondansetron Odt), 1 TAB PO Q8H PRN for nausea/vomiting, (Reported) Past Medical History Past Medical History: Seizures, Asthma, UTI, Bipolar Past Surgical History: tonsillectomy Patient History: FH: breast cancer MOTHER FH: myocardial infarction paternal grandfather FH: schizophrenia FATHER FH: seizures FATHER Alcohol Use: Occasionally Drug Use: marijuana Lives with: Family Lives In: Home Review of Systems ROS All review of systems negative except as per HPI Physical Exam Vital Signs: Temperature: 98.1, Source: Oral, Heart Rate: 110, Respiratory Rate: 17, BP: 142/90, Pulse Oximetry: 94, Weight: 99.320 Oxygen Flow Rate: 0 Physical Exam General: Patient is awake, alert, oriented x4 in no acute distress Head: Normocephalic and atraumatic. Eyes: Conjunctival normal. EOMI. PERRL. ENT: Mucous membranes moist. Neck: Supple, trachea is midline. Chest: Clear to auscultation bilaterally without rales, rhonchi, or wheezes. There is no accessory muscle use or retractions. Tenderness to palpation to axillary area with a very small 1 cm mobile mass appreciated. No erythema or fluctuance. No bruising Cardiac: Heart rate 90 and regular without murmurs, gallops, or rubs. Progress Results/Orders Results/Orders Orders - LOPEZ RODRÍGUEZ MD Chest,Single View (05/11/25 21:22) Ketorolac Trometh 15mg/Ml Vial (Toradol (05/11/25 22:10) Lidocaine 5% Patch (Lidoderm 5% Patch) (05/11/25 22:10) Completed Orders - LOPEZ RODRÍGUEZ MD Electrocardiogram (05/11/25 21:06) Chest,Single View (05/11/25 21:22) Vital Signs 05/11/25 20:58 Temp 98.1 Pulse 110 Resp 17 B/P (MAP) 142/90 Pulse Ox 94 O2 Flow Rate 0 EKG/XRAY/CT/US/VASC/MRI EKG : Additional Comment EKG interpreted by myself shows time of 07/12/2007, rate 108, sinus tachycardia, normal axis, no ST changes Chest X-Ray : Additional Comments Exam: CHEST,SINGLE VIEW EXAM: DI CHEST,SINGLE VIEW HISTORY: rib pain LEFT LAT TECHNIQUE: 1 view of the chest COMPARISON: DI CHEST,SINGLE VIEW on DOS: 01/27/25 FINDINGS/IMPRESSION: LUNGS: No pleural effusion, consolidation, or pneumothorax. MEDIASTINUM: Unremarkable. BONES: No acute osseous abnormality. OTHER: None. Medical Decision Making Additional information obtaine: old records Findings Patient presents to the emergency room with axillary pain that has per HPI. Differentials include but are not limited to ACS, pneumothorax, pneumonia, pleural effusion therefore EKG and chest x-ray performed both of which were reassuring. She has been worked up for the mass palpated in her axilla. I do n ot feel the mass represents an abscess and I do not feel the patient requires antibiotics. Cough symptoms likely viral in nature. Symptomatic treatment only. Differential Dx:Considerations: Include: Chest wall contusion, Flail chest, Myocardial contusion, Pneumothorax, Pulmonary contusion, Rib fracture, Renal contusion, Splenic fracture, Tension pneumothorax, Other Departure Disposition: HOME / SELF CARE / HOMELESS Impression: Primary Impression: Rib pain Condition: Stable Discharge Instructions: Rib Contusion Additional Instructions: You may take ibuprofen 600 mg with Tylenol 1000 mg at the same time Referrals: NO PRIMARY CARE PROVIDER (PCP) Prescriptions Lidocaine (Lidoderm) 5 % Adh..patch 1 PATCH TOP DAILY for 30 Days, #30 PATCH 0 Refills may wear up to 12 hours Prov: LOPEZ RODRÍGUEZ MD 05/11/25 Signature Scribe Signature: No scribe Attestation: The note accurately reflects work and decisions made by me.Lopez Rodríguez MD 05/11/25 22:16 LOPEZ RODRÍGUEZ MD May 11, 2025 22:15
[2025-05-11] MEDS ORDERED: LIDO-52 TOP (22:16)
[2025-05-11] MEDS: ketorolac trometh 15mg/ml vial 15 MG/ML ML IM ONE (22:16)
[2025-05-11 22:27] VITALS: BP 132/80; PULSE 78; RESP 16; TEMP 98.1; O2SAT 99
== END 2025-05-11 22:34 | disposition home or self-care (01) ==
LOC: ER 20:53
DX: R07.89 Other chest pain (principal); J45.909 Unspecified asthma, uncomplicated; F12.90 Cannabis use, unspecified, uncomplicated; F31.9 Bipolar disorder, unspecified; Z79.899 Other long term (current) drug therapy; Z88.0 Allergy status to penicillin; Z88.5 Allergy status to narcotic agent; Z90.89 Acquired absence of other organs; Z87.440 Personal history of urinary (tract) infections; Z72.89 Other problems related to lifestyle
CPT/HCPCS: 71045; 93005; 96372; 99283; J1885